=== PATIENT | female | born 1960 | race Caucasian/White ===

== ENCOUNTER 2024-04-17 22:33 | Emergency (ER) | payer OTHER ==
[~2024-04-17] VITALS: Ht 160 cm; Wt 86.2 kg
[2024-04-17 22:45] VITALS: BP_SYST 195; PULSE 91; RESP 19; TEMP 97.7; O2SAT 99
[2024-04-17 23:55] LABS: BILIRUBIN,URINE NEGATIVE (NEGATIVE); BLOOD, URINE NEGATIVE (NEGATIVE); CLARITY/URINE CLEAR (CLEAR); COLOR,URINE YELLOW (YELLOW); GLUCOSE,URINE TRACE (NEGATIVE); KETONES,URINE NEGATIVE (NEGATIVE); LEUKOCYTE ESTERASE ,URINE NEGATIVE (NEGATIVE); NITRITE, URINE NEGATIVE (NEGATIVE); PROTEIN URINE NEGATIVE (NEGATIVE); UROBILINOGEN,URINE 0.2 (0.2-1.0)
[2024-04-18 00:47] LABS: CALCIUM 9.5 mg/dL (8.4-11.0); CREATININE 1.02 mg/dL (0.55-1.30); POTASSIUM 4.4 mmol/L (3.5-5.1)
[2024-04-18 00:53] LABS: BASOPHILS % (AUTO) 0.2 % (0.0-2.0); EOSINOPHILS % (AUTO) 0.2 % (0.0-4.0); HEMATOCRIT 38.4 % (36-48); HEMOGLOBIN 13.4 g/dL (12.0-16.0); LYMPHOCYTES # (AUTO) 0.8 K/uL (1.0-5.5); LYMPHOCYTES % (AUTO) 6.8 % (20.5-51.5); MEAN CORPUSCULAR HEMOGLOBIN 30 pg (27-31); MEAN CORPUSCULAR HGB CONC 35 % (32-36); MEAN CORPUSCULAR VOLUME 85 fL (79.0-98.0); MONOCYTES # (AUTO) 0.6 K/uL (0.0-1.0); MONOCYTES % (AUTO) 4.9 % (1.7-9.3); NEUTROPHILS # (AUTO) 10.8 K/uL (1.8-7.7); NEUTROPHILS % (AUTO) 87.9 % (40.0-70.0); PLATELET COUNT (AUTO) 174 K/uL (130-430); RED BLOOD CELL COUNT(AUTO) 4.52 MIL/uL (4.2-6.2); RED CELL DISTRIBUTION WIDTH 14.4 % (9.0-15.0); WHITE BLOOD COUNT (AUTO) 12.3 K/uL (4.8-10.8)
[2024-04-18] MEDS: NACL 0.9% 1,000 ML IV ONE (01:35)
[2024-04-18] MEDS: KETOROLAC TROMETHAMINE 30 MG VIAL IVP ONE (01:37)
[2024-04-18 02:15] VITALS: BP_SYST 160; PULSE 89; RESP 19; TEMP 97.7; O2SAT 99
== END 2024-04-18 02:15 | disposition home or self-care (01) ==
LOC: SED 22:33
DX: S00.83XA Contusion of other part of head, initial encounter (principal); R55 Syncope and collapse; M25.531 Pain in right wrist; E87.1 Hypo-osmolality and hyponatremia; E11.9 Type 2 diabetes mellitus without complications; I10 Essential (primary) hypertension; W22.8XXA Striking against or struck by other objects, initial encounter; Y93.89 Activity, other specified; Y92.89 Other specified places as the place of occurrence of the external cause; Y99.8 Other external cause status
CPT/HCPCS: 99285; 80048; 81001; 85025; 36415; 93005; 81003; 96374; 96361; 73110; J1885; J7030